=== PATIENT | male | born 1945 | race Caucasian/White ===

== ENCOUNTER 2018-07-23 10:36 | Day surgery (SDC) | payer MEDICARE, BC ==
[2018-07-22 14:09] VITALS: BMI 29.5
--- NOTE | 2018-07-23 01:27 | HP ---
HISTORY OF PRESENT ILLNESS: This is a 72-year-old male, comes in for a colonoscopy for colon cancer screening. The patient has no specific GI symptoms. There is no history of rectal bleeding or abdominal pain. The patient has no family history of colon cancer. ALLERGIES: 1. LATEX. 2. MORPHINE. SOCIAL HISTORY: The patient does not smoke or drink alcohol socially. MEDICAL ILLNESSES: 1. Hypertension. 2. Hyperlipidemia. 3. Kidney stones. 4. Cholecystectomy. 5. Cystourethroscopy. PHYSICAL EXAMINATION: VITAL SIGNS: Pulse is 70, blood pressure 130/80. HEENT: Conjunctivae are clear. CARDIOVASCULAR SYSTEM: First and second heart sounds heard. LUNGS: Clear to auscultation. ABDOMEN: Soft. No organomegaly. No tenderness. No masses. EXTREMITIES: Reveal no edema. ADMITTING DIAGNOSIS: A 72-year-old male undergoing colonoscopy for colon cancer screening. Job ID: [id number]
[2018-07-23] MEDS ORDERED: PROPOFOL 200 MG/20 ML VIAL ONE (15:05)
--- NOTE | 2018-07-23 17:30 | OP ---
DATE OF PROCEDURE: 07/23/2018 OPERATIVE PROCEDURES: Colonoscopy with biopsy. PREOPERATIVE DIAGNOSIS: A 72-year-old male, undergoing colonoscopy for colon cancer screening. POSTOPERATIVE DIAGNOSES: 1. Sigmoid diverticular disease. 2. Sessile polyp, high sigmoid colon. 3. Hypertrophied anal papilla. DESCRIPTION OF PROCEDURE: The patient was placed on his left lateral position and was given sedation by Anesthesia Department. The rectal exam was done before the scope was advanced into the rectum. No lesions felt on rectal exam. A Pentax videocolonoscope was introduced into the rectum and advanced on to the cecum. The prep was good. The mucosa appeared normal throughout the colon with normal vascular pattern. Ileocecal area, cecum, and ascending colon, no pathology seen. The hepatic flexure, transverse colon, and splenic flexure, no pathology seen. The descending colon, no pathology seen. The high sigmoid colon showed a small sessile polyp. This was easily removed by forceps. The sigmoid colon showed scattered diverticular disease. Retroflexion of scope in the rectum showed hypertrophied anal papilla. DISCHARGE PLAN: This is a 72-year-old male, came for colonoscopy for colon cancer screening. He underwent colonoscopy with polypectomy with biopsies. DISCHARGE RECOMMENDATION: 1. The patient advised to call me, if he has abdominal pain or rectal bleeding_ . 2. High-fiber diet. 3. To come back to clinic in 2 weeks... Job ID: [id number] [facility]
== END 2018-07-23 15:03 | disposition home or self-care (01) ==
LOC: SDC 10:36
PROVIDERS: ATTEND Internal Medicine Gastroenterology
PROC: 0DBN8ZX Excision of Sigmoid Colon, Via Natural or Artificial Opening Endoscopic, Diagnostic (ICD-10-PCS; principal; 2018-07-23)
DX: Z12.11 Encounter for screening for malignant neoplasm of colon (principal); D12.5 Benign neoplasm of sigmoid colon; K57.30 Diverticulosis of large intestine without perforation or abscess without bleeding; K62.89 Other specified diseases of anus and rectum; E78.5 Hyperlipidemia, unspecified; I10 Essential (primary) hypertension; Z79.82 Long term (current) use of aspirin; Z79.899 Other long term (current) drug therapy; Z91.048 Other nonmedicinal substance allergy status; Z91.040 Latex allergy status
CPT/HCPCS: 88305; 93005; 93010; J2704

== ENCOUNTER 2019-12-11 14:49 | Inpatient (IN) | payer MEDICARE, BC, OTHER ==
[2019-12-11] MEDS ORDERED: Mag-Al 1200 mg/1200 mg/30 ML UDCUP PO PRN (15:58)
[2019-12-11] MEDS ORDERED: hydrALAZINE 20 MG/ML VIAL SLOW IVP PRN (15:58)
[2019-12-11] MEDS ORDERED: Acetaminophen 325 MG TAB PO PRN (15:58)
[2019-12-11] MEDS ORDERED: Ondansetron PF 4 MG/2 ML Vial IVP PRN (15:58)
[2019-12-11] MEDS ORDERED: Docusate 100 MG CAP PO PRN (15:58)
[2019-12-11] MEDS ORDERED: diphenhydrAMINE 50 MG CAP PO PRN (15:58)
[2019-12-11] MEDS ORDERED: Labetalol HCl 100 MG/20 ML VIAL SLOW IVP PRN (15:58)
[2019-12-11] MEDS ORDERED: Morphine 2 MG/ML SYRINGE SLOW IVP PRN (15:58)
[2019-12-11] MEDS ORDERED: CEFAZOLIN 2 GM in Premix Bag 1 BAG IVPB SCH (16:00)
[2019-12-11 16:25] LABS: #Basophils 0.1 thou/uL (0.0-0.2); #Eosinphils 0.2 thou/uL (0.0-0.7); #Lymphocytes 2.6 thou/uL (1.20-3.40); #Monocytes 0.7 thou/uL (0.11-0.59); #Neutrophils 3.1 thou/uL (1.40-6.50); %Basophils 1.2 % (0.0-1.0); %Eosinophils 2.4 % (0.0-10.0); %Lymphocytes 39.4 % (21.0-51.0); %Monocytes 10.6 % (0.0-10.0); %Neutrophils 46.4 % (42.0-75.0); Hemoglobin 15.4 g/dL (14.0-18.0); Mean Corpuscular HGB CONC 33.3 g/dL (32.0-36.0); Mean Corpuscular Hemoglobin 31.9 pg (27.0-31.0); Mean Corpuscular Volume 95.8 fL (78.0-98.0); Platelet Count 181 thou/uL (130-400); RBC Distribution Width 11.9 % (11.5-14.5); Red Blood Cell (RBC) Count 4.81 mill/uL (4.70-6.10); White Blood Cell (WBC) Count 6.6 thou/uL (4.8-10.8)
[2019-12-11 16:32] LABS: Prothrombin Time 13.6 sec (12.0-14.7)
--- NOTE | 2019-12-11 16:32 | PRG ---
DATE OF SERVICE: 12/11/2019 I personally interviewed and examined the patient, agreed with documentation of Tobi Finch PA-C, dated 12/11/2019. Briefly, Tobi Guadalupe is a 74-year-old gentleman, takes aspirin and hit his head in late October. He did not seek medical attention at the time, but due to growing headache, came to the emergency department today, where CT examination of brain revealed a large left frontal subdural hematoma with chronic blood products. There was significant mass effect on the left frontal lobe with some shift from the right to the left. We recommended surgical intervention. INFORMED CONSENT: I discussed indications, risks, benefits, and alternatives to surgery. The risks we discussed included, but were not limited to, bleeding, infection, brain damage, seizure, stroke, dependence for care, permanent neurological deficit, and . He understands the risks. He wants to proceed. We will take Mr. Guadalupe to the operating room. We will place a subdural drain and leave that drain in at least overnight. We will repeat the CT scan in the morning. If things look good, we may be able to remove the drain tomorrow. We will keep him on antibiotics. This has been explained to the patient. The operate room is currently getting ready. Job ID: [id number]
[2019-12-11 16:46] VITALS: BMI 27.6
[2019-12-11] MEDS ORDERED: Midazolam HCl 2 mg/2 ml Vial ONE ×2 (17:17→17:45)
[2019-12-11] MEDS ORDERED: Labetalol HCl 100 MG/20 ML VIAL ONE (17:41)
[2019-12-11] MEDS ORDERED: hydrALAZINE 20 MG/ML VIAL ONE (17:53)
[2019-12-11] MEDS: Sodium Chloride 0.9% 1,000 ML IV SCH (19:07)
[2019-12-11] MEDS: Atorvastatin Calcium 10 MG TAB PO SCH (20:52)
[2019-12-11] MEDS: HYDROcodone/Acetaminophen 7.5/325 mg Tablet PO PRN (21:32)
[2019-12-11] MEDS: CEFAZOLIN 2 GM in Premix Bag 1 BAG IVPB SCH (22:48)
--- NOTE | 2019-12-12 01:24 | OP ---
DATE OF PROCEDURE: 12/11/2019 FISHER TRAP: None. PREOPERATIVE INDICATION: Prevent further neurological deterioration. PREOPERATIVE DIAGNOSIS: Chronic subdural hematoma, right frontal with midline shift. POSTOPERATIVE DIAGNOSIS: Chronic subdural hematoma, right frontal with midline shift. OPERATIVE PROCEDURE: Hershey hole evacuation of right frontal subdural hematoma, placement of subdural drain. PREOP MEDICATION: Vancomycin 2 g IV. DRAIN NUMBER: One. DRAIN TYPE: 10-Telugu red rubber catheter in the subdural space. DESCRIPTION OF PROCEDURE: The patient was brought to the operating room. IV sedation was administered. The patient's right shoulder was bumped and head immobilized with tape and a gel-filled donut-shaped headrest. Air was removed from the right side of the scalp. We planned our frontal and parietal incisions as well as the drain exit site. We infused local anesthetic into the planned incisions and around the margins of the intended prep area. The scalp was sterilely prepped and draped. We made two incisions and placed self-retaining retractors after we dissected down the periosteum. High-speed drill was brought into the field and we fashioned graham holes in the frontal bone and parietal bone. We waxed the edges of the graham holes and coagulated the dura. We opened the dura in a cruciate fashion. We opened the parietal graham hole dura first and entered subdural fluid collection that looked like chronic blood products. I opened the frontal dura next and entered a two-layer fluid collection with a membrane in between the two layers. We widely opened the membrane. We irrigated copiously with bacitracin irrigation in the subdural space into the irrigant ran clear from both the frontal and parietal graham holes. We brought a red rubber catheter into the field and cut the extra side holes in it. We tunneled this posterior through separate stab incision and placed it in the subdural space. I made sure fluid came out of the red rubber catheter. We placed bur hole covers because the patient was completely bald on the top of his head and would have noticeable indentation of the scalp. We closed the incisions in anatomic layers. We connected the distal end of the red rubber catheter to the Huang drainage system. Sterile dressings were applied. We wrapped the head. Patient left the room in good neurological condition. Job ID: [id number]
[2019-12-12 03:55] LABS: Anion Gap 12 mmol/L (10-20); BUN (Urea Nitrogen) 14 mg/dL (8.4-25.7); Calc. Creatinine Clearance 103 mL/min (70-130); Calcium 8.9 mg/dL (7.8-10.44); Carbon Dioxide 23 mmol/L (23-31); Chloride 105 mmol/L (98-107); Estimated GFR-MDRD 84; Glucose 116 mg/dL (83-110); Sodium 136 mmol/L (136-145)
[2019-12-12] MEDS: Sodium Chloride 0.9% 1,000 ML IV SCH ×3 (05:27→19:18)
--- NOTE | 2019-12-12 08:06 | PRG ---
DATE OF SERVICE: 12/12/2019 Mr. Guadalupe was seen from the ICU hallway. He is on droplet precautions. He is resting comfortably overnight and did not have any major complaints for his nurses. Vital signs I see recorded are stable. As I watch him, he is moving all his extremities purposefully. He is rearranging himself in bed. He rolls from side to side. A CT examination of the brain reveals marked decrease in the size of subdural fluid collection. There is still a small layer of fluid and the drain is in appropriate position to collect it over the coming day. I leave the drain in for one more day. Mr. Guadalupe can get in and out of bed and move around. However, when he is sleeping, I like the head of bed flat. I like his right ear on the pillow to use gravity to allow his brain to slowly push fluid out of the right subdural area. I think this will give us the best chance of collecting a little bit more fluid between now and tomorrow. The drain can come out tomorrow and you can leave the ICU at that point. Job ID: [id number]
[2019-12-12] MEDS: CEFAZOLIN 2 GM in Premix Bag 1 BAG IVPB SCH ×3 (08:09→23:03)
[2019-12-12] MEDS: Potassium Citrate 10 MEQ TAB PO SCH (08:10)
--- NOTE | 2019-12-12 08:15 | CT ---
PRELIMINARY REPORT/[facility]/AFTER HOURS PROCEDURE Receipt of this report by the clinical staff was confirmed with Franchesca Gonsalves RN by Bhavani hinton on December 12, 2019 04:39:00 CDT. Addendum electronically signed by Bhavani hinton on December 12, 2019 4:40:[address] HEAD WITHOUT INTRAVENOUS CONTRAST: CLINICAL HISTORY: Status post craniotomy. COMPARISON: None provided. FINDINGS: BRAIN: Right sided subdural collection measuring up to 1.5 cm in thickness with scattered acute hemor rhage, moderate pneumocephalus, and overlying right frontal craniotomy. High right frontal approach s urgical drainage catheter in place, terminating within the anteroinferior aspect of the collection. M idline shift to the left measuring up to 6-7 mm. Moderate right-sided cerebral sulcal effacement. Thomas ggestion of acute ischemic changes in the basal ganglia bilaterally. VENTRICLES: Mild to moderate right lateral ventricular effacement. SINUSES AND MASTOIDS: Mild paranasal sinus mucosal thickening. Trace thickening/fluid in the mastoid air cells. SOFT TISSUES: Mild right frontal scalp soft tissue swelling and gas at the craniotomy site. BONES: Right-sided craniotomy changes. IMPRESSION: 1. Right-sided subdural collection with associated right-sided postsurgical/craniotomy changes includ ing moderate pneumocephalus and scattered acute blood. Mass-effect with 6-7 mm of midline shift to th e left. Surgical drain in place. 2. Findings suspicious for acute ischemic changes in the basal ganglia bilaterally. ELECTRONICALLY SIGNED BY: Marco A Wells MD December 12, 2019 4:32:55 AM CDT This report is intended for review by the ordering physician only, in accordance of law. If you recei ve this report in error, please call [facility] at [phone]. FINAL REPORT CT BRAIN WITHOUT CONTRAST: I agree with the preliminary report given by Dr. Marco A Wells of [facility]. CODE QA POS: OFF
--- NOTE | 2019-12-12 10:04 | CON ---
DATE OF CONSULTATION: 12/12/2019 CONSULTING PHYSICIAN: Guru Haji MD REASON FOR CONSULTATION: ICU care. HISTORY OF PRESENT ILLNESS: This is a 74-year-old, who slipped and fell several days ago. He had an injury to his head. He had an evolving subdural hematoma, which required drainage last night. He was left in the ICU afterward. For reasons that are unclear to me, he was put on COVID-19 isolation and we are pending a test. He says he has little bit of a headache, getting somewhat dizzy this morning, but otherwise feels okay. PAST MEDICAL HISTORY: Remarkable for hypertension and hyperlipidemia. PAST SURGICAL HISTORY: He has a cholecystectomy and a graham hole drainage. ALLERGIES: ADHESIVE TAPE. MEDICATIONS: He is on simvastatin and lisinopril at home. SOCIAL HISTORY: Occasionally drinks a wine cooler. Does not consume tobacco products. 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 He travels around the [place] about 6 months a year in . REVIEW OF SYSTEMS: Twelve-point review of systems is otherwise negative. PHYSICAL EXAMINATION: VITAL SIGNS: Temperature 98.5, pulse 76, blood pressure 127/73, and O2 saturation 96%. GENERAL: He is awake and alert, no distress. NEUROLOGIC: Nonfocal. He has a bandage around his head with a drain coming on his right baptism region. HEENT: Otherwise, unremarkable. NECK: No JVD. CHEST: Clear. CARDIAC: S1 and S2. Regular. ABDOMEN: Soft. EXTREMITIES: No edema. LABORATORY DATA: White blood cell count 6.6, hematocrit 46.1, and platelet count 181. Sodium 136, potassium 4, BUN 14, creatinine 0.8, and glucose 116. ASSESSMENT: 1. Status post graham hole drainage for subdural hematoma. 2. Currently on rule-out COVID status. PLAN: I will restart his antihypertensive. Respiratory isolation can be discontinued once his COVID test is back. Job ID: [id number]
[2019-12-12 17:38] LABS: SARS-CoV-2 MS2 Positive; SARS-CoV-2 N Gene Negative; SARS-CoV-2 S Gene Negative; SARS-CoV-2 orf1ab Negative
[2019-12-12] MEDS: Atorvastatin Calcium 10 MG TAB PO SCH (19:46)
--- NOTE | 2019-12-12 19:52 | CON ---
DATE OF CONSULTATION: 12/11/2019 REASON FOR CONSULTATION: Traumatic subdural hematoma. HISTORY OF PRESENT ILLNESS: This is a 74-year-old gentleman who fell 2 weeks ago. He tells me he had a brain scan which was normal and to follow up 2 weeks later for re-scan of the brain. The patient was re-scanned at [facility] in the Emergency Department. Scan showed a 2.3 cm subdural hemorrhage with mass effect. Two weeks ago, he stated that he had some dizziness, headache, which is no different from today. His GCS score is 15. He has a normal neuro exam. The patient is moving all extremities and make a walk on his own power. He tells me he is taking aspirin 81 mg. ALLERGIES: ADHESIVE. MEDICATIONS: Aloe vera, D12, aspirin 81 mg, Centrum, lisinopril 5 mg, potassium citrate 10 mg, simvastatin 20 mg, rizatriptan 10 mg. PAST MEDICAL HISTORY: Hyperlipidemia, hypertension, kidney stone, seasonal allergies. PAST SURGICAL HISTORY: Cholecystectomy. SOCIAL HISTORY: Denies nicotine use. Occasional drinker of alcohol. Denies illicit drugs. REVIEW OF SYSTEMS: CONSTITUTIONAL: Denies fever or chills. EAR, NOSE, AND THROAT: Denies change in vision or hearing. CARDIAC: Denies chest pain, shortness of breath, diaphoresis. PULMONARY: Denies shortness of breath, cough, hemoptysis. GASTROINTESTINAL: Denies abdominal pain, nausea, vomiting, diarrhea, change in stool formation and consistency. GENITOURINARY: Denies trouble with urination, frequency of urination, bloody urine. SKIN: Denies skin rash, bruising, bleeding, skin masses. MUSCULOSKELETAL: As per history of present illness. NEUROLOGICAL: As per history of present illness. PSYCHOLOGICAL: Denies anxiety, depression, or behavior changes. PHYSICAL EXAMINATION: VITALS: Blood pressure 121/82, pulse 70, respirations 18, temperature 97.8. Weight 98 kg, height 6 feet 2 inches. HEENT: Pupils are equal. Extraocular movements are intact. NECK: Soft, supple. No masses are noted. Range of motion is intact and nonpainful. NEUROLOGIC: Awake, alert, and oriented x3. Attention, fund of knowledge normal. Cranial nerves grossly intact. EXTREMITIES: Upper extremities, he has good strength in the deltoids, biceps, triceps, wrist extensions, finger extension, finger intrinsics. Sensation equal bilaterally. Reflexes symmetric. Lower extremities, he has good strength in the iliopsoas, quadriceps, hamstrings, anterior tib, EHL, and gastrocnemius. There is no area of dermatomal sensory loss. The reflexes are symmetric. The toes are downgoing. IMAGING DATA: MRI, 2.3 cm subdural hematoma with mass effect. PLAN: Two graham holes on the right for subdural hematoma drainage. Consent was signed. Discussed the indications, risks, benefits, alternatives, and expected results from surgery. The risks discussed included, but were not limited to, bleeding, infection, CSF leak, nerve damage, weakness, incontinence, paralysis, ventilator dependency, wheelchair dependency, stroke, loss of vision, cardiopulmonary complications of anesthesia or . The patient states they understand the risks and is willing to proceed. Job ID: [id number]
[2019-12-12] MEDS ORDERED: Prevnar 13-Val Conj/PF 0.5 ML SYRINGE IM ONE (21:00)
[2019-12-13] MEDS: Sodium Chloride 0.9% 1,000 ML IV SCH ×2 (01:51→12:54)
--- NOTE | 2019-12-13 07:08 | PRG ---
DATE OF SERVICE: 12/13/2019 Mr. Guadalupe is 2 days out from graham hole evacuation of subdural hematoma. We left a drain in an extra day and he tried his best to sleep in a right lateral decubitus position so that the brain could push out more subdural fluid. He is feeling fine this morning. He has no headaches. His symptoms are mild postop pain, but no neurological symptoms. There are no fevers recorded. The other vital signs appear stable. His blood pressure is a little bit up in the 140s. There is no pronator drift. There is no neglect and no deficits referable to the subdural hematoma. Our plan today is to remove the drain. He will need to be flat for about an hour or two after the drain is out and then slowly get up after that. He can go to floor care after the drain is removed. He will need one more dose of antibiotics. If he is safe for his ADLs, he can leave as soon as this afternoon. Job ID: [id number]
[2019-12-13] MEDS: CEFAZOLIN 2 GM in Premix Bag 1 BAG IVPB SCH ×2 (07:22→14:09)
[2019-12-13] MEDS: HYDROcodone/Acetaminophen 7.5/325 mg Tablet PO PRN (07:22)
[2019-12-13] MEDS: Potassium Citrate 10 MEQ TAB PO SCH (07:23)
--- NOTE | 2019-12-13 08:07 | PRG ---
DATE OF SERVICE: 12/13/2019 SUBJECTIVE: The patient is doing well. He had his subdural drain removed today. He is going to be moved out to the floor. OBJECTIVE: VITAL SIGNS: His temperature is 98.7, pulse 81, and blood pressure 159/101. HEENT: Unremarkable except for the incision on the right worship. NECK: No adenopathy or JVD. LUNGS: Clear. CARDIAC: S1 and S2. Regular. ABDOMEN: Soft. EXTREMITIES: No edema. ASSESSMENT: 1. Status post evacuation of subdural hematoma. 2. Hypertension. PLAN: The patient is being transferred to the floor. No further critical care. Recommendations will be available as needed. Job ID: [id number]
[2019-12-13] MEDS ORDERED: Lisinopril 5 MG TAB PO SCH (09:00)
[2019-12-13 15:59] VITALS: BP 136/79; TEMP 98.6
[2019-12-14] MEDS ORDERED: Aspirin 81 mg Enteric Coated Tablet PO SCH (09:00)
[2019-12-14] MEDS ORDERED: Vit A,C & E/Lutein/Minerals Tablet PO SCH (09:00)
[2019-12-14] MEDS ORDERED: Loratadine 10 MG TAB PO SCH (09:00)
[2019-12-14] MEDS ORDERED: Rizatriptan Benzoate 10 MG MLT TAB PO SCH (09:00)
--- NOTE | 2019-12-14 14:33 | DIS ---
DATE OF ADMISSION: 12/11/2019 DATE OF DISCHARGE: 12/13/2019 HOSPITAL COURSE: Mr. Guadalupe is two days out from graham hole evacuation of a subdural hematoma on 12/11/2019. EVD drain was placed on the right side and was transitioned to the ICU, where his pain was well controlled with p.o. medications. He is tolerating a regular diet and was voiding appropriately. His EVD drain output was much improved when he was sleeping in the lower right lateral decubitus position. His EVD drain was removed and the patient was transitioned to the med/surgery floor about 90 minutes after. He is otherwise doing well and ambulating easily in the hallways, feels that he is ready to go home today. PHYSICAL EXAMINATION: He is awake and alert, in no acute distress. He has three active range of motion of all his extremities. No focal motor weakness. No reflex asymmetry. His incision is clean, dry, and intact. There are no fevers recorded. Vital signs appear stable. There is no pronator drift. There is no neglect and no deficits regarding the subdural hematoma. We will plan to discharge the patient, if he is safe for his ADLs. I discussed home care precautions. CONDITION ON DISCHARGE: The patient had no emergencies. Condition was stable for discharge. MEDICATIONS: Home going medications were reviewed and sent to the patient's pharmacy. FOLLOWUP: Followup arrangements have been made by our transcription coordinator in the clinic and call to the patient. ACTIVITIES: Restrictions were reviewed in person. Wound care showers are acceptable. The patient should pat the incision dry, but not submerge under the surface of the body of water for 2 months. Job ID: [id number]
--- NOTE | 2019-12-16 10:44 | PQF ---
[employer] Worker Crystal Reports Winform ViewerMACHANBA Reardon L GERARD MD [id number] CLINICAL DOCUMENTATION CLARIFICATION FORM: POST DISCHARGE Addendum to original discharge summary date: ____ Late entry note date: __ DATE: 12/16/2019 ATTN: Kojo Haji Please exercise your independent, professional judgment in responding to the clarification form. Clinical indicators are provided on the bottom of this form for your review Please check appropriate box(s): [ ] Cerebral edema / Vasogenic edema [ ] Compression of brain Due to: [ ] [ ] Subdural hematoma [ [ ] Other diagnosis [ ] Unable to determine In addition, please specify: Present on Admission (POA): [ ] Yes [ ] No [ ] Unable to determine For continuity of documentation, please document condition throughout progress notes and discharge summary. Thank You. CLINICAL INDICATORS - SIGNS / SYMPTOMS / LABS Mass effect with 6-7 mm of midline shift to the left - CT brain 12/11 by Blanco Rivera Scan showed a 2.2-cm subdural hemorrhage with mass effect - Consult 12/10 by Nba Finch RISK [employer]CTORS Chronic subdural hematoma, right frontal with midline shift - OP report 12/10 by Kojo Haji TREATMENTS: Katrina hole evacuation of right frontal subdural hematoma, placement of subdural drain - OP report 12/10 by Kojo Haji Brain CT 12/11 (This form is maintained as a part of the permanent medical record) 2014 [email or web address]. All Rights Reserved [email or web address] [email or web address]
== END 2019-12-13 16:30 | disposition home or self-care (01) | DRG 27 ==
LOC: IMCU/EMU 15:53 → CCU 16:40 → SURG A 12-13 11:39
PROVIDERS: ADMIT Neurological Surgery; ATTEND Neurological Surgery
PROC: 009400Z Drainage of Intracranial Subdural Space with Drainage Device, Open Approach (ICD-10-PCS; principal; 2019-12-11)
PROC: 8E0ZXY6 Isolation (ICD-10-PCS; 2019-12-11)
DX: S06.5X9A Traumatic subdural hemorrhage with loss of consciousness of unspecified duration, initial encounter (principal); Z20.828 Contact with and (suspected) exposure to other viral communicable diseases; W01.10XA Fall on same level from slipping, tripping and stumbling with subsequent striking against unspecified object, initial encounter; R40.2413 Glasgow coma scale score 13-15, at hospital admission; E78.5 Hyperlipidemia, unspecified; I10 Essential (primary) hypertension; G93.89 Other specified disorders of brain; Z87.442 Personal history of urinary calculi; Z90.49 Acquired absence of other specified parts of digestive tract
CPT/HCPCS: 36415; 70450; 80048; 84403; 85025; 85610; 85730; 87635; 99152; 99153; C1713; G0103; J0360; J0690; J2250; J2270; J2405; U0003

== ENCOUNTER 2020-05-03 10:45 | Outpatient (CLI) | payer MEDICARE, BC ==
--- NOTE | 2020-05-03 11:41 | CT ---
Exam: Head CT without contrast HISTORY: Nontraumatic subdural hemorrhage. Follow-up exam. COMPARISON: 12/12/2019 FINDINGS: Hemorrhage: No intraparenchymal hemorrhage or extra-axial hematoma. Brain parenchyma: Cortical lovelace-white matter differentiation is preserved. No mass effect or midline shift. Basilar cisterns are patent.Stable white matter hypodensities due to chronic small vessel ischemic change. Stable hypoattenuation of the anterior limb of both internal capsules. Ventricular system: Ventricles and sulci are patent and symmetric. Calvarium: Stable graham hole defects. Sinuses and mastoid air cells: Adequate aeration. IMPRESSION: 1. No evidence of intracranial hemorrhage. 2. Chronic changes of the brain parenchyma.
== END 2020-05-03 10:46 | disposition home or self-care (01) ==
LOC: SCSCT 10:45
PROVIDERS: ATTEND Neurological Surgery
DX: I62.03 Nontraumatic chronic subdural hemorrhage (principal); G93.9 Disorder of brain, unspecified
CPT/HCPCS: 70450

== ENCOUNTER 2020-11-22 10:41 | Emergency (ER) | payer MEDICARE, BC ==
[2020-11-22 16:12] LABS: Anion Gap 14 mmol/L (10-20); BUN (Urea Nitrogen) 17 mg/dL (8.4-25.7); Calc. Creatinine Clearance 0 mL/min (70-130); Calcium 9.8 mg/dL (7.8-10.44); Carbon Dioxide 21 mmol/L (23-31); Chloride 103 mmol/L (98-107); Glucose 105 mg/dL (83-110); Potassium 3.9 mmol/L (3.5-5.1); Sodium 134 mmol/L (136-145)
[2020-11-22 17:12] LABS: #Eosinphils 0.1 thou/uL (0.0-0.7); #Lymphocytes 1.2 thou/uL (1.20-3.40); #Monocytes 0.6 thou/uL (0.11-0.59); #Neutrophils 10.8 thou/uL (1.40-6.50); %Basophils 0.1 % (0.0-1.0); %Eosinophils 0.9 % (0.0-10.0); %Lymphocytes 9.1 % (21.0-51.0); %Monocytes 4.4 % (0.0-10.0); %Neutrophils 85.5 % (42.0-75.0); Hemoglobin 13.1 g/dL (14.0-18.0); Mean Corpuscular HGB CONC 32.4 g/dL (32.0-36.0); Mean Corpuscular Hemoglobin 30.6 pg (27.0-31.0); Mean Corpuscular Volume 94.4 fL (78.0-98.0); Mean Platelet Volume 6.7 fL (7.4-10.4); Platelet Count 279 thou/uL (130-400); RBC Distribution Width 11.7 % (11.5-14.5); Red Blood Cell (RBC) Count 4.29 mill/uL (4.70-6.10); White Blood Cell (WBC) Count 12.7 thou/uL (4.8-10.8)
[2020-11-23 00:55] LABS: SARS-CoV-2 PCR by NAA Not Detected (NotDetected)
== END 2020-11-22 13:49 | disposition home or self-care (01) ==
LOC: ERS 10:41
DX: M79.605 Pain in left leg (principal); M79.604 Pain in right leg; Z20.822 Contact with and (suspected) exposure to COVID-19; E78.5 Hyperlipidemia, unspecified; I10 Essential (primary) hypertension; Z86.73 Personal history of transient ischemic attack (TIA), and cerebral infarction without residual deficits; Z79.899 Other long term (current) drug therapy
CPT/HCPCS: 80048; 85025; 93970; 99284; U0003; U0005; 87635

== ENCOUNTER 2022-08-24 15:33 | Observation (INO) | payer MEDICARE, BC ==
[~2022-08-24 15:33] MED LIST: Iopamidol-370 76% 500 ML 1 ML ONE
[2022-08-24 16:26] LABS: #Eosinphils 0.1 thou/uL (0.0-0.7); #Lymphocytes 2.1 thou/uL (1.20-3.40); #Monocytes 0.7 thou/uL (0.11-0.59); #Neutrophils 2.6 thou/uL (1.40-6.50); %Basophils 0.5 % (0.0-1.0); %Eosinophils 1.9 % (0.0-10.0); %Lymphocytes 37.4 % (21.0-51.0); %Monocytes 12.1 % (0.0-10.0); %Neutrophils 48.2 % (42.0-75.0); Hemoglobin 14.7 g/dL (14.0-18.0); Mean Corpuscular HGB CONC 34.1 g/dL (32.0-36.0); Mean Corpuscular Hemoglobin 32.5 pg (27.0-31.0); Mean Corpuscular Volume 95.3 fl (78.0-98.0); Mean Platelet Volume 6.9 fL (7.4-10.4); Platelet Count 167 10x3/uL (130-400); RBC Distribution Width 11.8 % (11.5-14.5); Red Blood Cell (RBC) Count 4.52 mill/uL (4.70-6.10); White Blood Cell (WBC) Count 5.5 10x3/uL (4.8-10.8)
[2022-08-24 16:40] LABS: INR-International Normal Ratio 1.1; PTT 28.2 sec (22.9-36.1); Prothrombin Time 14.3 sec (12.0-14.7)
[2022-08-24 16:49] LABS: ALT (SGPT) 27 U/L (8-55); AST (SGOT) 20 U/L (5-34); Albumin 3.8 g/dL (3.4-4.8); Alkaline Phosphatase 73 U/L (40-110); Anion Gap 9 mmol/L (10-20); BUN (Urea Nitrogen) 21 mg/dL (8.4-25.7); Bilirubin, Total 1.4 mg/dL (0.2-1.2); Calc. Creatinine Clearance 0 mL/min (70-130); Calcium 9.5 mg/dL (7.8-10.44); Carbon Dioxide 26 mmol/L (23-31); Chloride 105 mmol/L (98-107); Estimated GFR 77; Globulin 2.4 g/dL (2.4-3.5); Glucose 80 mg/dL (83-110); Potassium 4.2 mmol/L (3.5-5.1); Protein, Total 6.2 g/dL (5.8-8.1); Sodium 136 mmol/L (136-145)
[2022-08-24 16:53] LABS: Bilirubin Negative (Negative); Blood, Urine Negative (Negative); Clarity Clear (Clear); Glucose, Urine (Dipstick) Normal (Negative); Ketone, Urine Negative (Negative); Leukocyte Negative Leu/uL (Negative); Nitrite Negative (Negative); Protein, Urine (Dipstick) Negative (Neg-Trace); Specific Gravity, Urine 1.029 (1.002-1.036); Urobilinogen Normal mg/dL (Less than 2)
[2022-08-24] MEDS ORDERED: Aspirin Chewable 81 MG TAB ONE (17:04)
[2022-08-24] MEDS ORDERED: Acetaminophen 325 MG TAB PO PRN (19:00)
[2022-08-24] MEDS ORDERED: Ondansetron PF 4 MG/2 ML Vial IVP PRN (19:00)
[2022-08-24] MEDS ORDERED: Ondansetron ODT 4 MG TAB SL PRN (19:00)
[2022-08-24 21:44] VITALS: BMI 28.8
[2022-08-24] MEDS ORDERED: SUMAtriptan Succinate 50 MG TAB PO PRN (21:52)
[2022-08-25 05:39] LABS: #Basophils 0.1 thou/uL (0.0-0.2); #Eosinphils 0.2 thou/uL (0.0-0.7); #Lymphocytes 2.6 thou/uL (1.20-3.40); #Monocytes 0.7 thou/uL (0.11-0.59); #Neutrophils 1.8 thou/uL (1.40-6.50); %Basophils 1.1 % (0.0-1.0); %Lymphocytes 48.4 % (21.0-51.0); %Monocytes 12.8 % (0.0-10.0); %Neutrophils 33.7 % (42.0-75.0); Hemoglobin 15.3 g/dL (14.0-18.0); Mean Corpuscular HGB CONC 35.3 g/dL (32.0-36.0); Mean Corpuscular Hemoglobin 33.4 pg (27.0-31.0); Mean Corpuscular Volume 94.7 fl (78.0-98.0); Mean Platelet Volume 7.1 fL (7.4-10.4); Platelet Count 162 10x3/uL (130-400); RBC Distribution Width 11.9 % (11.5-14.5); Red Blood Cell (RBC) Count 4.58 mill/uL (4.70-6.10); White Blood Cell (WBC) Count 5.4 10x3/uL (4.8-10.8)
[2022-08-25 05:59] LABS: Hemoglobin A1c 6.2 % (4.0-6.0)
[2022-08-25 06:02] LABS: ALT (SGPT) 26 U/L (8-55); AST (SGOT) 20 U/L (5-34); Albumin 3.6 g/dL (3.4-4.8); Alkaline Phosphatase 72 U/L (40-110); Bilirubin, Direct 0.4 mg/dL (0.1-0.3); Bilirubin, Total 1.3 mg/dL (0.2-1.2); Protein, Total 6.3 g/dL (5.8-8.1)
[2022-08-25 06:04] LABS: Anion Gap 12 mmol/L (10-20); BUN (Urea Nitrogen) 20 mg/dL (8.4-25.7); Calc. Creatinine Clearance 92 mL/min (70-130); Calcium 9.4 mg/dL (7.8-10.44); Carbon Dioxide 24 mmol/L (23-31); Cardiac Risk 4.7 (Less than 4.5); Chloride 105 mmol/L (98-107); Cholesterol 175 mg/dl (< 200 Desired); Estimated GFR 78; Glucose 108 mg/dL (83-110); HDL Cholesterol 37 mg/dL (>60 Neg Risk); LDL Cholesterol, Calculated 97 mg/dL; Sodium 137 mmol/L (136-145); Triglycerides 204 mg/dL (Less than 150)
[2022-08-25] MEDS ORDERED: Clopidogrel Bisulfate 75 MG TAB PO SCH (09:00)
[2022-08-25] MEDS ORDERED: Multivitamin W/ Minerals 1 TAB PO SCH (09:00)
[2022-08-25] MEDS ORDERED: Aspirin 81 mg Enteric Coated Tablet PO SCH (09:00)
[2022-08-25] MEDS ORDERED: Lisinopril 5 MG TAB PO SCH (09:00)
[2022-08-25 12:03] VITALS: BP 111/66; TEMP 97.9
[2022-08-25] MEDS ORDERED: Atorvastatin Calcium 40 MG TAB PO SCH (21:00)
== END 2022-08-25 14:45 | disposition home or self-care (01) ==
LOC: ERS 15:33 → NEURO 17:20 → INTOOBSV 17:20
PROVIDERS: ADMIT Student in an Organized Health Care Education/Training Program; ATTEND Student in an Organized Health Care Education/Training Program
DX: G45.9 Transient cerebral ischemic attack, unspecified (principal); I11.9 Hypertensive heart disease without heart failure; I08.3 Combined rheumatic disorders of mitral, aortic and tricuspid valves; R73.03 Prediabetes; E78.5 Hyperlipidemia, unspecified; E80.6 Other disorders of bilirubin metabolism; Z85.46 Personal history of malignant neoplasm of prostate; Z86.73 Personal history of transient ischemic attack (TIA), and cerebral infarction without residual deficits; Z87.442 Personal history of urinary calculi; Z79.899 Other long term (current) drug therapy; Z88.5 Allergy status to narcotic agent; Z91.048 Other nonmedicinal substance allergy status
CPT/HCPCS: 36415; 36416; 70450; 70496; 70498; 70551; 71045; 80048; 80053; 80061; 80076; 81003; 83036; 84443; 84484; 85025; 85610; 85730; 93005; 93306; G0378

== ENCOUNTER 2023-06-12 07:39 | Outpatient (CLI) | payer MEDICARE, BC | END 2023-06-12 07:40 | disposition home or self-care (01) | LOC: ULT 07:39 | PROVIDERS: ATTEND Family Medicine | DX: R17 Unspecified jaundice (principal); N28.89 Other specified disorders of kidney and ureter; Z90.49 Acquired absence of other specified parts of digestive tract | CPT/HCPCS: 76705 ==

== ENCOUNTER 2023-09-17 16:00 | Outpatient (CLI) | payer MEDICARE, BC | END 2023-09-17 16:01 | disposition home or self-care (01) | LOC: SLEEPLAB 16:00 | PROVIDERS: ATTEND Family Medicine | DX: G47.33 Obstructive sleep apnea (adult) (pediatric) (principal); R53.83 Other fatigue; R51.9 Headache, unspecified; R06.83 Snoring; G45.9 Transient cerebral ischemic attack, unspecified; I10 Essential (primary) hypertension | CPT/HCPCS: 95800 ==